=== PATIENT | female | born 2000 | race Caucasian/White ===

== ENCOUNTER → 2024-04-24 14:13 | Outpatient (REF) | payer OTHER, SELFPAY | LOC: WDC 14:13 | PROVIDERS: ATTENDING PHYSICIAN Physician Assistant | DX: N63.20 Unspecified lump in the left breast, unspecified quadrant (principal) | CPT/HCPCS: 76642 ==

== ENCOUNTER → 2025-03-22 08:53 | Outpatient (REF) | payer BC, SELFPAY | LOC: HWRAD 08:53 | PROVIDERS: ATTENDING PHYSICIAN Physician Assistant | DX: R11.0 Nausea (principal); R07.9 Chest pain, unspecified; K21.9 Gastro-esophageal reflux disease without esophagitis | CPT/HCPCS: 76700 ==

== ENCOUNTER 2025-07-08 12:52 | Emergency (ER) | payer BC, SELFPAY ==
[2025-07-08 12:53] VITALS: BP 147/103
[2025-07-08 13:52] LABS: Urine Character Clear (Clear)
[2025-07-08 14:01] LABS: HCG, Urine Qualitative Screen Negative
[2025-07-08 14:08] LABS: Urine White Cell 0-2 /HPF (0-5)
--- NOTE | 2025-07-08 14:14 | ED.GENMED ---
History of Present Illness
General
Chief Complaint: Abdominal Symptoms
Source: patient
Time Seen by Provider: 07/08/25 13:47
History of Present Illness
History of Present Illness:
24-year-old female with no significant past medical history presenting to the emergency department with concerns for possible recurring urinary tract infection noting that towards the beginning of the month she was having some urinary frequency and
burning sensation upon urinating, went to urgent care where she was given a prescription for Macrobid which she completed and while symptoms did seem to get better did not feel fully back to 100% and over the last couple of days started to notice
the recurring pressure-like sensation in the lower abdomen, mild frequency. She denies any vaginal bleeding or discharge. She notes that earlier this year she had STI testing which was negative and states she does not have concern for sexually
transmitted infection. Currently on her last menstrual period. Denies fevers, chills, rigors, nausea or vomiting or flank pain.
Past History
Past History
ED Past Medical History: Psychiatric (anxiety)
ED Past Surgical History: Orthopedic and Other (wisdom teeth)
Social History
Tobacco: Non-smoker
Alcohol: Occasional
Drug: Marijuana
Personal: Single
Living: with family
Employment: Employed
Review of Systems
Review of Systems
All Other Systems: ROS reviewed and negative except as documented in HPI and ROS
Phy Exam
Physical Exam
Physical Exam:
GENERAL: Alert , in no apparent distress
EYE: clear conjunctiva b/l
HEAD: NCAT
ENT: o/p clr, mmm.
CARDIAC: Regular rate and rhythm .
LUNGS: Clear breath sounds bilaterally, no acute respiratory distress, no wheezes/rales/rhonchi
ABDOMEN: Soft, without focal tenderness, no r/g, no cvat
NEUROLOGICAL: Alert and oriented
SKIN: Warm and dry, skin intact.
MUSCULOSKELETAL: well perfused.
PSYCH: Normal and appropriate interaction.
Scores
Heart Failure Risk
Heart Failure Risk Score: Not Applicable
Heart Score for Chest Pain Patients
STEMI patient?: Not applicable
Withdrawal Assessment of Alcohol
Withdrawal Assessment Completed?: Not applicable
Course
Orders/Labs/Results
Orders:
Orders
07/08/25 13:37
Test Result ONCE
07/08/25 13:41
Beta Hcg Urine Qualitative Screen [HCG, Urine Qualitative Screen] Urgent
Date Specimen was Collected: 07/08/25
Time Specimen was Collected: 13:37
Urinalysis Reflex To Culture Urgent
Date Specimen was Collected: 07/08/25
Time Specimen was Collected: 13:37
Urine Microscopic Reflex Cult Urgent
Chlamydia/GC by PCR Urgent
AMBROSE Source: U
Specimen Description:
Date Specimen was Collected: 07/08/25
Time Specimen was Collected: 13:37
07/08/25 14:08
CT Abd/pel Without Iv Or Oral Urgent
Comment:
Reason For Exam: hematuria
07/08/25 14:12
Add On - Microbiology Urgent
Tests Added?: GC/Chlamidia PCR urine
07/08/25 14:28
Complete Blood Count/With Diff Urgent
Comprehensive Metabolic Panel Urgent
Lipase Urgent
Abnormal Lab Results
07/08/25 07/08/25
13:41 14:28
WBC 10.9 H 10^3/uL
(4.8-10.8)
Absolute Lymphs (auto) 3.6 H 10^3/uL
(1.2-3.4)
Ur Occult Blood Reflex 4+ A
(Negative)
Urine RBC 7-10 A /HPF
(0-2)
07/08/25 14:28
07/08/25 14:28
Vital Signs
Initial and Last Documented VS:
Initial Vital Signs
Temp Pulse Resp BP Pulse Ox
98.6 F 67 16 147/103 98
07/08/25 12:53 07/08/25 12:53 07/08/25 12:53 07/08/25 12:53 07/08/25 12:53
Last Documented Vital Signs
Temp Pulse Resp BP Pulse Ox
98.6 F 63 16 121/79 99
07/08/25 12:53 07/08/25 15:16 07/08/25 15:16 07/08/25 15:16 07/08/25 15:16
MDM/Problems Addressed
Differential Diagnosis Includes:
Cystitis
Pyelonephritis
Renal/ureteral colic
Kidney stone
Ovarian cyst
Less concern for an ovarian torsion
STI
MDM/Problems Addressed:
24-year-old female presenting to the emergency department for evaluation of ongoing urinary symptoms, completed a 7-day course of Macrobid with relief of most of her symptoms. Denies any fevers, is overall very well-appearing and in no acute
distress. Given patient has already had workup completed with a urinalysis and repeat urinalysis at urgent care will add on labs and CT imaging to rule out any potential kidney stones. Disposition pending.
*Radiology
Radiology exam reviewed: radiology read reviewed
*Pulse Oximetry
SaO2: 98
Oxygen Mode of Delivery: Room air
Patient hypoxic: no
*Critical Care Note
Total Time (30-74mins, 75-104mins- exclusive of procedures): Not Applicable
Patient Management
Escalation/DeEscalation of care consider admission/obs:
Hoarse due to CT findings noted for diffuse bladder wall thickening, given her urinary symptoms will treat for urinary tract infection with Bactrim DS. Other incidental findings discussed and patient was provided with printout of this report. I
did encourage close follow-up with primary care provider given this is the second time patient has had the symptoms within a month as well as that she may need to follow-up with urology if her symptoms persist. Patient aware of return precautions
to the ER but is otherwise stable for discharge home.
ED Attending Note
-
Portions of this chart may have been created with voice recognition software.� Occasional wrong word or��sound alike� substitutions may have occurred due to the inherent limitations of voice recognition software.
Discharge Plan
Departure
Patient Disposition: Home (Routine Discharge)
Date of Disposition: 07/08/25
Time of Disposition: 16:16
Patient with high blood pressure during this ER visit?: Yes
Discharge Problem:
Urinary tract infection
Instructions: Urinary tract infection in adults - ED (DC)
Prescriptions:
New
sulfamethoxazole-trimethoprim [Bactrim DS] 800-160 mg tablet
1 tab PO BID 10 Days Qty: 20 0RF
phenazopyridine [Pyridium] 200 mg tablet
200 mg PO TID PRN (Reason: Pain) Qty: 9 0RF
No Action
famotidine [Pepcid] 20 mg tablet
20 mg PO BID Qty: 30 0RF
Referrals:
Diana English PA-C [Family Provider, Internal Medicine]
Interventions
Interventions:
*Risk Screen - Suicide Last Done: 07/08/25 12:53
*General Assessment Last Done: 07/08/25 13:44
*Neglect/Abuse Screening Last Done: 07/08/25 12:53
*ED- Fall Risk Assessment Last Done: 07/08/25 13:44
SR-Aghbvc-Futxocgtqy Assessment Last Done: 07/08/25 13:44
Discharge Date and Time
Print Language: [id number]
[2025-07-08 14:47] LABS: Hematocrit 38.4 % (37.0-47.0); Hemoglobin 12.7 g/dL (12.0-16.0); Mean Corp Hgb Conc. 33.1 g/dL (33.0-37.0); Mean Corpuscular Volume 87.3 fL (81.0-99.0); Nucleated Red Blood Cells % 0 %; Platelet Count 372 10^3/uL (130-400); Red Cell Dist. Width 12.7 % (11.5-14.5)
[2025-07-08 15:00] LABS: ALT (SGPT) 15 U/L (0-35); AST (SGOT) 19 U/L (14-36); Albumin 4.7 g/dl (3.5-5.0); Alkaline Phosphatase 52 U/L (38-126); Blood Urea Nitrogen 12 mg/dl (7-17); Calcium 9.7 mg/dl (8.4-10.2); Carbon Dioxide 23 mmol/L (22-30); Chloride 106 mmol/L (98-107); Glucose 84 mg/dl (70-99); Lipase 47 U/L (23-300); Potassium 4.4 mmol/L (3.5-5.1); Sodium 137 mmol/L (135-145); Total Protein 7.9 g/dl (6.3-8.2); eGFR > 60.00
[2025-07-08 15:16] VITALS: BP 121/79
== END 2025-07-08 16:31 | disposition home or self-care (01) ==
LOC: EMR 12:52
PROVIDERS: Physician Assistant Medical; EMERGENCY PHYSICIAN Emergency Medicine; FAMILY PHYSICIAN Physician Assistant
DX: N39.0 Urinary tract infection, site not specified (principal); N32.89 Other specified disorders of bladder
CPT/HCPCS: 99284; 74176; 80053; 81003; 81015; 81025; 83690; 85025; 87491; 87591

== ENCOUNTER → 2025-09-22 07:36 | Outpatient (REF) | payer OTHER, SELFPAY | LOC: RCS 07:36 | PROVIDERS: FAMILY PHYSICIAN Physician Assistant | DX: F90.2 Attention-deficit hyperactivity disorder, combined type (principal) | CPT/HCPCS: 93005 ==